=== PATIENT | male | born 1975 | race Caucasian/White ===

== ENCOUNTER 2016-08-15 09:20 | Emergency (ER) | payer SELFPAY ==
[~2016-08-15] VITALS: Ht 188 cm; Wt 90.0 kg
[~2016-08-15 09:20] MED LIST: BACT800T5 PO; METH10TA PO
[2016-08-15 09:27] VITALS: BP 134/95; PULSE 86; RESP 16; TEMP 98.3; O2SAT 98
[2016-08-15] MEDS ORDERED: KETOROLAC TROMETHAMINE 60 MG/2 ML (IM) VIAL IM ONE (09:45)
--- NOTE | 2016-08-15 09:50 | PD ---
HPI Chief Complaint: Injury Time Seen by Provider: 09:40 Travel History International Travel<30 days: No Contact w/Intl Traveler<30days: No Traveled to known affect area: No History of Present Illness HPI Patient is a 40-year-old male comes in complaining of pain to his right shoulder. He says it has been hurting for the past week after he was hitting a punching bag with his son. He denies any direct trauma to the shoulder. He denies being hit there or having any falls. He says he has taken ibuprofen for 2 days with some relief. He says the pain goes from the back of his shoulder down the back of his elbow. He says he has injuries to the shoulder from playing sports in the past. 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 SKIN: Focused skin assessment warm/dry. HEAD: Atraumatic. Normocephalic. EYES: Pupils equal and round. No scleral icterus. ENT: Mucous membranes pink and moist. CARDIOVASCULAR: Regular rate and rhythm. No murmur appreciated. RESPIRATORY: No accessory muscle use. Clear to auscultation. Breath sounds equal bilaterally. MUSCULOSKELETAL: No obvious deformities. No clubbing. No cyanosis. No edema. Pain with abduction of the right shoulder. Pain with external rotation of the right shoulder. Patient has complete range of motion of the right shoulder. Radial pulses intact. NEUROLOGICAL: Awake and alert. No obvious cranial nerve deficits. Motor grossly within normal limits. Normal speech. Data Data Last Documented VS Vital Signs Date Time Temp Pulse Resp B/P Pulse Ox O2 Delivery O2 Flow Rate FiO2 08/15/16 09:27 98.3 86 16 134/95 98 Orders Ketorolac Inj (Toradol Inj) (08/15/16 09:45) MDM Medical Decision Making Medical Screen Exam Complete: Yes Emergency Medical Condition: Yes Differential Diagnosis Shoulder dislocation versus fracture versus rotator cuff injury versus shoulder strain Narrative Course Patient is a 40-year-old male comes in complaining of right shoulder pain. Exam shows pain with external and internal rotation of the shoulder. He has full range of motion, shoulder is not dislocated. There is no bony tenderness on palpation. Patient given IM Toradol. Advised to continue taking ibuprofen as needed for pain. Advised follow-up with orthopedics. Advised to stretch, but rest the shoulder. Advised to return to the ED as needed for any worsening symptoms. Diagnosis Primary Impression: Right shoulder strain Qualified Code: S46.911A - Right shoulder strain, initial encounter Referrals: Robi Clement MD call for appointment Patient Instructions: General Instructions, Shoulder Sprain (ED) Additional Instructions: Follow up with orthopedics. Continue to take Ibuprofen as needed for pain. Return to the ED as needed for any worsening symptoms. Scripts No Active Prescriptions or Reported Meds Disposition: 01 DISCHARGE HOME Condition: Stable Mallory Caballero MD August 15, 2016 09:50
== END 2016-08-15 10:00 | disposition home or self-care (01) ==
LOC: PHEFT 09:20
DX: S46.911A Strain of unspecified muscle, fascia and tendon at shoulder and upper arm level, right arm, initial encounter (principal); I10 Essential (primary) hypertension; R73.03 Prediabetes; F17.200 Nicotine dependence, unspecified, uncomplicated
CPT/HCPCS: 96372; 99284; J1885